=== PATIENT | female | born 1950 | race Hispanic/Latino ===

== ENCOUNTER 2017-05-03 07:15 | Emergency (ER) | payer OTHER ==
[2017-05-03 07:16] VITALS: BMI 30.7
[2017-05-03 07:20] VITALS: O2SAT 100
[2017-05-03 07:38] VITALS: RESP 18
--- NOTE | 2017-05-03 07:58 | ED PDOC ---
HPI: General Adult Time Seen by Provider: 05/03/17 07:46 Chief Complaint (Nursing): Dizziness/Lightheaded Chief Complaint (Provider): Dizziness/Lightheaded History Per: Patient History/Exam Limitations: no limitations Onset/Duration Of Symptoms: Hrs Current Symptoms Are (Timing): Still Present Additional Complaint(s): 67 y/o female presents to the emergency department with a complaint of dizziness since this morning, 05/03/2017. Symptoms are not associated with headache, chest pain, palpitations, nausea, or vomiting. Denies dark stools. PMD: Dr. Carlos A Quintana MD Past Medical History Reviewed: Historical Data, Nursing Documentation, Vital Signs Vital Signs: Last Vital Signs Temp 97.8 F 05/03/17 07:34 Pulse 65 05/03/17 07:34 Resp 18 05/03/17 07:34 BP 150/61 05/03/17 07:19 Pulse Ox 100 05/03/17 08:02 - Medical History PMH: Arthritis, CAD (cardiac stents ), HTN, Hypercholesterolemia, Hypothyroidism , Mitral Valve Prolapse, Osteoporosis Denies: Alzheimer's Disease, Anemia, Anxiety, Asthma, Bipolar Disorder, Bronchitis, Cardia Arrhythmia, CHF, COPD, Crohn's Disease, Dementia, Depression , Diverticulitis, Emphysema, Fibromyalgia, Fractures, Gastrointestinal Ulcer, Gall Bladder Disease, HIV, Hyperthyroidism, Kidney Stones, Migraine, Pancreatitis, Paranoia, Parkinson's Disease, Peripheral Edema, Pneumonia, Post Traumatic Stress Disorder, Chronic Kidney Disease, Schizophrenia, Seizures, Sickle Cell Disease, Sexually Transmitted Disease, Sleep Apnea, TIA - Surgical History Surgical History: Coronary Stent (4 stents 2012) Denies: Appendectomy, Cholecystectomy, Pacemaker - Family History Family History: States: Unknown Family Hx - Social History Current smoker - smoking cessation education provided: No Alcohol: None Drugs: Denies - Home Medications Home Medications: Ambulatory Orders Medication Instructions Recorded Aspirin [Adult Low Dose Aspirin EC] 81 mg PO DAILY 07/05/16 Lidocaine 5% [Lidoderm] 1 ea TOP DAILY #30 patch 07/05/16 Losartan Potassium [Cozaar] 50 mg PO DAILY 07/05/16 Prasugrel [Effient] 10 mg PO DAILY 07/05/16 Simvastatin [Zocor] 20 mg PO HS 07/05/16 amLODIPine [Norvasc] 2.5 mg PO DAILY 07/05/16 Meclizine [Meclizine*] 25 mg PO Q8 #15 tab 05/03/17 - Allergies Allergies/Adverse Reactions: Allergies Allergy/AdvReac Type Severity Reaction Status Date / Time Penicillins Allergy SHORTNESS Verified 05/03/17 07:34 OF BREATH Review of Systems ROS Statement: Except As Marked, All Systems Reviewed And Found Negative Cardiovascular: Negative for: Chest Pain, Palpitations Gastrointestinal: Negative for: Nausea, Vomiting, Melena Neurological: Positive for: Dizziness. Negative for: Headache Physical Exam - Reviewed Nursing Documentation Reviewed: Yes Vital Signs Reviewed: Yes - Physical Exam Appears: Positive for: Non-toxic, No Acute Distress Head Exam: Positive for: ATRAUMATIC, NORMAL INSPECTION, NORMOCEPHALIC Skin: Positive for: Normal Color, Warm, Dry Cardiovascular/Chest: Positive for: Regular Rate, Rhythm. Negative for: Murmur Respiratory: Positive for: Normal Breath Sounds. Negative for: Accessory Muscle Use, Respiratory Distress Gastrointestinal/Abdominal: Positive for: Normal Exam, Soft. Negative for: Tenderness Extremity: Positive for: Normal ROM. Negative for: Pedal Edema Neurologic/Psych: Positive for: Alert, rubber goods assembler II-XII (Intact), Oriented - Laboratory Results Result Diagrams: 05/03/17 07:50 05/03/17 07:50 - ECG O2 Sat by Pulse Oximetry: 100 (RA) Pulse Ox Interpretation: Normal Medical Decision Making Medical Decision Making: Time:07:53 Initial impression: Dizziness Initial plan: --EKG --CMP --Troponin --CBC w/ diff --PT/INR --Reevaluation Scribe Attestation: Documented by Nga Jackson, acting as a scribe for Brandon Chester MD. Provider Scribe Attestation: All medical record entries made by the Scribe were at my direction and personally dictated by me. I have reviewed the chart and agree that the record accurately reflects my personal performance of the history, physical exam, medical decision making, and the department course for this patient. I have also personally directed, reviewed, and agree with the discharge instructions and disposition. Disposition - Clinical Impression Clinical Impression: Dizziness - Patient ED Disposition Is Patient to be Admitted: No Counseled Patient/Family Regarding: Studies Performed, Diagnosis, Need For Followup, Rx Given - Disposition Referrals: Carlos A Quintana MD [Primary Care Provider] - Disposition: Routine/Home Disposition Time: 08:42 Condition: FAIR Prescriptions: Meclizine [Meclizine*] 25 mg PO Q8 #15 tab Instructions: Vertigo (ED) Forms: [employer] (Salv[place]orean)
[2017-05-03 08:06] LABS: BASO # 0.1 K/uL (0.0-0.2); EOS # 0.3 K/uL (0.0-0.7); HEMOGLOBIN 12.3 g/dL (12.0-16.0); LYMPH # 0.9 K/uL (1.0-4.3); LYMPH % 22.4 % (20.0-40.0); MEAN CELL VOLUME 73.9 fl (81.0-99.0); MEAN CORPUSCULAR HEMOGLOBIN 23.9 pg (27.0-31.0); MEAN CORPUSCULAR HGB CONC 32.3 g/dL (33.0-37.0); MEAN PLATELET VOLUME 8.3 fl (7.2-11.7); MONO # 0.4 K/uL (0.0-0.8); MONO % 9.1 % (0.0-10.0); NEUT # 2.5 K/uL (1.8-7.0); NEUT % 58.5 % (50.0-75.0); NRBC % 0.2 % (0.0-0.0); RBC 5.15 Mil/uL (3.80-5.20); RED CELL DISTRIBUTION WIDTH 16.8 % (11.5-14.5); WHITE BLOOD COUNT 4.2 K/uL (4.8-10.8)
[2017-05-03 08:23] LABS: ALB/GLOB RATIO 1.2 (1.0-2.1); ALBUMIN 4.1 g/dL (3.5-5.0); ALT/SGPT 33 U/L (9-52); AST/SGOT 31 U/L (14-36); BLOOD UREA NITROGEN 15 mg/dl (7-17); CALCIUM 9.3 mg/dL (8.4-10.2); GFR AFRICAN-AMERICAN > 60; GFR NON-AFRICAN AMERICAN > 60
[2017-05-03 08:32] LABS: INR 1.2 (0.9-1.2); PROTHROMBIN TIME 12.5 Seconds (9.8-13.1)
[2017-05-03 09:43] VITALS: BP 132/74; PULSE 89; TEMP 98.6
--- NOTE | 2017-05-03 10:52 | CARD ---
APPROVED REPORT EKG Measurement Heart [id number] <Conclusion> Normal sinus rhythm Normal ECG
== END 2017-05-03 09:44 | disposition home or self-care (01) ==
LOC: H.ER 07:15 → SUPCPDRO 07:15 → H.ER 09:44
DX: R42 Dizziness and giddiness (principal); E03.9 Hypothyroidism, unspecified; E78.00 Pure hypercholesterolemia, unspecified; I10 Essential (primary) hypertension; Z79.82 Long term (current) use of aspirin; Z88.0 Allergy status to penicillin; Z95.5 Presence of coronary angioplasty implant and graft

== ENCOUNTER 2018-01-27 10:44 | Observation (INO) | payer OTHER ==
[2018-01-27 10:51] VITALS: BMI 25.7
[2018-01-27 12:13] LABS: BASO # 0.1 K/uL (0.0-0.2); BASO % 1.3 % (0.0-2.0); EOS # 0.1 K/uL (0.0-0.7); EOS % 2.2 % (0.0-4.0); HEMOGLOBIN 12.7 g/dL (12.0-16.0); LYMPH # 1.4 K/uL (1.0-4.3); LYMPH % 25.1 % (20.0-40.0); MEAN CELL VOLUME 72.4 fl (81.0-99.0); MEAN CORPUSCULAR HEMOGLOBIN 23.3 pg (27.0-31.0); MEAN CORPUSCULAR HGB CONC 32.2 g/dL (33.0-37.0); MEAN PLATELET VOLUME 8.9 fl (7.2-11.7); MONO # 0.5 K/uL (0.0-0.8); MONO % 8.7 % (0.0-10.0); NEUT # 3.5 K/uL (1.8-7.0); NEUT % 62.7 % (50.0-75.0); NRBC % 0.2 % (0.0-0.0); RBC 5.47 Mil/uL (3.80-5.20); RED CELL DISTRIBUTION WIDTH 17.1 % (11.5-14.5); WHITE BLOOD COUNT 5.6 K/uL (4.8-10.8)
[2018-01-27 12:22] LABS: ALB/GLOB RATIO 1.1 (1.0-2.1); ALT/SGPT 40 U/L (9-52); AST/SGOT 34 U/L (14-36); BLOOD UREA NITROGEN 16 mg/dl (7-17); GFR AFRICAN-AMERICAN > 60; GFR NON-AFRICAN AMERICAN > 60
[2018-01-27 12:32] LABS: B-TYPE NATRIURETIC PEPTIDE 650 pg/ml (0-900)
--- NOTE | 2018-01-27 12:40 | RAD ---
HISTORY: chest pain/ r/o infiltrate COMPARISON: No prior. TECHNIQUE: Chest PA and lateral FINDINGS: LUNGS: No active pulmonary disease. PLEURA: No significant pleural effusion identified. No pneumothorax apparent. CARDIOVASCULAR: Atherosclerotic aortic calcifications. Cardiomediastinal silhouette prominent. OSSEOUS STRUCTURES: Degenerative changes. VISUALIZED UPPER ABDOMEN: Normal. OTHER FINDINGS: None. IMPRESSION: No active disease.
--- NOTE | 2018-01-27 12:42 | CT ---
PROCEDURE: CT HEAD WITHOUT CONTRAST. HISTORY: dizzy COMPARISON: None available. TECHNIQUE: Axial computed tomography images were obtained through the head/brain without intravenous contrast. Radiation dose: Total exam DLP = 659 mGy-cm. This CT exam was performed using one or more of the following dose reduction techniques: Automated exposure control, adjustment of the mA and/or kV according to patient size, and/or use of iterative reconstruction technique. FINDINGS: HEMORRHAGE: No intracranial hemorrhage. BRAIN: No mass effect or edema. Atrophy. Chronic microvascular ischemic changes. VENTRICLES: Prominent. No hydrocephalus. CALVARIUM: Left frontal excrescence. PARANASAL SINUSES: Unremarkable as visualized. No significant inflammatory changes. MASTOID AIR CELLS: Opacification of left mastoid air cells. No inflammatory changes. OTHER FINDINGS: Cerumen in both external auditory canals. IMPRESSION: Opacification of left mastoid air cells.
[2018-01-27 13:58] LABS: SQUAMOUS EPITHIAL < 1 /hpf (0-5); URINE BACTERIA RARE (<OCC); URINE BILIRUBIN NEGATIVE (NEGATIVE); URINE BLOOD MODERATE (NEGATIVE); URINE CLARITY SLIGHTY-CLOUDY (Clear); URINE COLOR YELLOW (YELLOW); URINE GLUCOSE (UA) NEG (Normal); URINE LEUKOCYTE ESTERASE MOD Leu/uL (Negative); URINE PROTEIN NEGATIVE (NEGATIVE); URINE UROBILINOGEN 0.2-1.0 mg/dL (0.2-1.0)
--- NOTE | 2018-01-27 14:59 | ED PDOC ---
Syncope/Near Syncope/Dizziness Time Seen by Provider: 01/27/18 11:23 Chief Complaint (Nursing): Dizziness/Lightheaded Chief Complaint (Provider): dizziness "i dont feel right" History Per: Patient History/Exam Limitations: no limitations Onset/Duration Of Symptoms: Intermittent Episodes (x several weeks) Current Symptoms Are (Timing): Intermittent Episodes Activity At Onset Of Symptoms: Had Just Stood up Associated Symptoms Preceding Syncopal Episode: Lightheadedness, Worse With Standing Seizure Or Post-ictal Symptoms: None Possible Causative Factor(s): Lightheaded W/Standing Fall Associated With With Symptoms: No Severity: Moderate Additional Complaint(s): 68yo female c/o recurrent near syncope and "not feeling right" intermittent episodes over last several weeks. This morning thought to have brief word finding difficulties but denies focal weakness, change in vision, sensation or actual syncope. States compliant w medications and takes ASA daily given 5 prior cardiac stents, last in 2013, but she hasnt seen a computer networking instructor adjunct in several years. NIHSS Stroke Scale - Date/Time Evaluation Performed Date Performed: 01/27/18 Time Performed: 11:45 When Was NIHSS Performed: Baseline - How Severe is the Stroke Level of Consciousness: 0=Alert LOC to Questions: 0=Both comments correct LOC to commands: 0=Obeys both correctly Best Gaze: 0=Normal Visual: 0=No visual loss Facial: 0=Normal Motor Arm - Left: 0=No drift Motor Arm - Right: 0=No drift Motor Leg - Left: 0=No drift Motor Leg - Right: 0=No drift Limb Ataxia: 0=Absent Sensory: 0=Normal Best Language: 0=No aphasia Dysarthia: 0=Normal articulation Extinction & Inattention (Neglect): 0=Normal, no object Score: 0 Past Medical History Reviewed: Historical Data, Nursing Documentation, Vital Signs Vital Signs: Last Vital Signs Temp 99 F 01/27/18 10:50 Pulse 84 01/27/18 10:50 Resp BP 129/56 L 01/27/18 10:50 Pulse Ox 100 01/27/18 10:50 - Medical History PMH: Arthritis, CAD (cardiac stents ), HTN, Hypercholesterolemia, Hypothyroidism , Mitral Valve Prolapse, Osteoporosis Denies: Alzheimer's Disease, Anemia, Anxiety, Asthma, Bipolar Disorder, Bronchitis, Cardia Arrhythmia, CHF, COPD, Crohn's Disease, Dementia, Depression , Diverticulitis, Emphysema, Fibromyalgia, Fractures, Gastrointestinal Ulcer, Gall Bladder Disease, HIV, Hyperthyroidism, Kidney Stones, Migraine, Pancreatitis, Paranoia, Parkinson's Disease, Peripheral Edema, Pneumonia, Post Traumatic Stress Disorder, Chronic Kidney Disease, Schizophrenia, Seizures, Sickle Cell Disease, Sexually Transmitted Disease, Sleep Apnea, TIA - Surgical History Surgical History: Coronary Stent (4 stents 2012) Denies: Appendectomy, Cholecystectomy, Pacemaker - Family History Family History: States: Unknown Family Hx - Living Arrangements Living Arrangements: With Family - Social History Current smoker - smoking cessation education provided: No - Home Medications Home Medications: Ambulatory Orders Medication Instructions Recorded Aspirin [Adult Low Dose Aspirin EC] 81 mg PO DAILY 07/05/16 Lidocaine 5% [Lidoderm] 1 ea TOP DAILY #30 patch 07/05/16 Losartan Potassium [Cozaar] 50 mg PO DAILY 07/05/16 Prasugrel [Effient] 10 mg PO DAILY 07/05/16 Simvastatin [Zocor] 20 mg PO HS 07/05/16 amLODIPine [Norvasc] 2.5 mg PO DAILY 07/05/16 Meclizine [Meclizine*] 25 mg PO Q8 #15 tab 05/03/17 - Allergies Allergies/Adverse Reactions: Allergies Allergy/AdvReac Type Severity Reaction Status Date / Time Penicillins Allergy SHORTNESS Verified 01/27/18 11:01 OF BREATH Review of Systems Constitutional: Positive for: Weakness. Negative for: Fever ENT: Negative for: Throat Pain Cardiovascular: Positive for: Palpitations, Light Headedness. Negative for: Chest Pain, Orthopnea Respiratory: Positive for: SOB with Exertion Gastrointestinal: Positive for: Nausea. Negative for: Abdominal Pain Genitourinary Female: Negative for: Dysuria Musculoskeletal: Negative for: Neck Pain Skin: Negative for: Rash, Lesions, Jaundice Neurological: Positive for: Dizziness. Negative for: Weakness, Numbness, Seizures, Headache Psych: Negative for: Suicidal ideation Physical Exam - Reviewed Nursing Documentation Reviewed: Yes Vital Signs Reviewed: Yes - Physical Exam Appears: Positive for: Well, Non-toxic, No Acute Distress Head Exam: Positive for: ATRAUMATIC, NORMAL INSPECTION, NORMOCEPHALIC Skin: Positive for: Normal Color, Warm, DRY Eye Exam: Positive for: EOMI, Normal appearance, PERRL ENT: Positive for: Normal ENT Inspection Neck: Positive for: Normal, Painless ROM Cardiovascular/Chest: Positive for: Regular Rate, Rhythm Respiratory: Positive for: CNT, Normal Breath Sounds Gastrointestinal/Abdominal: Positive for: Normal Exam, Soft. Negative for: Tenderness Back: Positive for: Normal Inspection Extremity: Positive for: Normal ROM Neurologic/Psych: Positive for: Alert, Oriented - Laboratory Results Result Diagrams: 01/27/18 12:00 01/27/18 12:00 - ECG O2 Sat by Pulse Oximetry: 100 Medical Decision Making Medical Decision Making: pt not a candidate for TPA given onset >6hrs and NIHSS currently 0 workup for recurrent near syncope initiated CT brain ordered Labs/EKG reviewed CT brain neg for acute infarct D/w FRUIT SPRAYER at PMD Dr Pack office, no recent cardiology workup Given CAD and multiple risk factors, admit obs for cardio/neuro evals D/w Dr Carrasquillo cardio alteration tailor requests echo and orthostatics Small UTI macrobid initiated Disposition - Clinical Impression Clinical Impression: Near syncope - Patient ED Disposition Is Patient to be Admitted: Yes Counseled Patient/Family Regarding: Studies Performed, Diagnosis, Need For Followup - Disposition Disposition Time: 13:30 Condition: FAIR Forms: [employer] ([place]) - Pt Status Changed To: Hospital Disposition Of: Observation - POA Present On Arrival: None
--- NOTE | 2018-01-27 16:13 | CARD ---
APPROVED REPORT EXAM: Two-dimensional and M-mode echocardiogram with Doppler and color Doppler. Other Information Quality : [employer] : PVC's INDICATION Syncope 2D DIMENSIONS IVSd0.74 (0.7-1.1cm)LVDd4.99 (3.9-5.9cm) LVOT Diameter1.86 (1.8-2.4cm)PWd1.02 (0.7-1.1cm) IVSs1.13 (0.8-1.2cm)LVDs3.08 (2.5-4.0cm) FS (%) 38.2 %PWs1.30 (0.8-1.2cm) LVEF (%)55.0 (>50%) M-Mode DIMENSIONS Left Atrium (MM)4.15 (2.5-4.0cm)IVSd0.88 (0.7-1.1cm) Aortic Root2.41 (2.2-3.7cm)LVDd4.65 (4.0-5.6cm) Aortic Cusp Exc.1.82 (1.5-2.0cm)PWd0.97 (0.7-1.1cm) IVSs1.47 cmFS (%) 38 % LVDs2.88 (2.0-3.8cm)PWs1.50 cm Aortic Valve AI P 1/2 [id number] Mitral Valve MV E Prnbdnix09.0cm/sMV DECEL [id number] A Iftlhnlt09.3cm/s MV [id number]/A ratio0.8MVA (PHT)2.28cm2 TDI Lateral E' Peak V6.44cm/sMedial E' Peak V4.81cm/sE/Lateral E'8.9 E/Medial E'11.9 Pulmonary Valve PV Peak Jdaoknfu18.1cm/s Tricuspid Valve TR Peak Nlvkdvon857sy/sRAP [id number] Peak Gr.16mmHg [id number] LEFT VENTRICLE The left ventricle is normal size. There is mild concentric left ventricular hypertrophy. The left ventricular function is normal. The left ventricular ejection fraction is within the normal range. There is normal LV segmental wall motion. Transmitral Doppler flow pattern is Grade I-abnormal relaxation pattern. RIGHT VENTRICLE The right ventricle is normal size. There is normal right ventricular wall thickness. The right ventricular systolic function is normal. ATRIA The left atrium size is normal. The right atrium size is normal. AORTIC VALVE The aortic valve is moderately sclerotic. There is moderate aortic regurgitation. There is no aortic valvular stenosis. MITRAL VALVE The mitral valve is moderately thickened. There is no mitral valve stenosis. There is no mitral valve regurgitation noted. TRICUSPID VALVE The tricuspid valve is normal in structure. There is no tricuspid valve regurgitation noted. PULMONIC VALVE The pulmonary valve is normal in structure. There is no pulmonic valvular regurgitation. GREAT VESSELS The aortic root is normal in size. The IVC is normal in size and collapses >50% with inspiration. PERICARDIAL EFFUSION There is a trace loculated anterior pericardial effusion. <Conclusion> The left ventricle is normal size. There is mild concentric left ventricular hypertrophy. The left ventricular function is normal. The left ventricular ejection fraction is within the normal range. There is normal LV segmental wall motion. Transmitral Doppler flow pattern is Grade I-abnormal relaxation pattern. There is moderate aortic regurgitation.
--- NOTE | 2018-01-27 18:35 | CARD ---
APPROVED REPORT EKG Measurement Heart [id number] <Conclusion> Normal sinus rhythm Normal ECG
--- NOTE | 2018-01-27 20:06 | CP.PCM.CON ---
History of Present Illness - History of Present Illness History of Present Illness: 68 Y/O FEMALE WITH LH X 4 WEEKS. PT STATES THAT SHE HAS BEEN FEELING LH WITH STANDING, ON AND OFF X SEVERAL EPISODES OVER PAST 4 WEEKS. PT DENIES SYNCOPE. SHE STATES TODAY HER LH WAS MORE SEVERE SO SHE CAME TO ER. SHE STATES THAT TODAY SHE ALSO FELT WEAK. PT HAD SEVERAL ANGINAL EVENTS IN PAST WITH CP AND L ARM PAIN. SHE HAS NOT HAD ANY OF THOSE SYMPTOMS RECENTLY. SHE HAS PCI X 4. ON ASA AND EFFIENT PT IS MILDLY PRERENAL, MILD DECREASED BP FOR AGE, AND BRADYCARDIC AT REST. I REVIEWED ECHO IMAGES - NML EF, DIASTOLIC DYSFUNCTION, MILD AI AND MR. Past Patient History - Infectious Disease Hx of Infectious Diseases: None - Past Social History Smoking Status: Former Smoker - CARDIAC Hx Cardiac Disorders: Yes - PULMONARY Hx Asthma: No Hx Bronchitis: No Hx Chronic Obstructive Pulmonary Disease (COPD): No Hx Emphysema: No Hx Pneumonia: No Hx Sleep Apnea: No - NEUROLOGICAL Hx Neurological Disorder: Yes - HEENT Hx HEENT Problems: Yes (wears glasses) - RENAL Hx Chronic Kidney Disease: No - ENDOCRINE/METABOLIC Hx Hyperthyroidism: No Hx Hypothyroidism: Yes - HEMATOLOGICAL/ONCOLOGICAL Hx Anemia: No Hx Human Immunodeficiency Virus (HIV): No Hx Sickle Cell Disease: No - INTEGUMENTARY Hx Dermatological Problems: No Hx Basil Cell: No Hx Eczema: No Hx Melanoma: No Hx Psoriasis: No Hx Squamous Cell: No - MUSCULOSKELETAL/RHEUMATOLOGICAL Hx Musculoskeletal Disorders: Yes - GASTROINTESTINAL Hx Crohn's Disease: No Hx Diverticulitis: No Hx Gall Bladder Disease: No Hx Pancreatitis: No - GENITOURINARY/GYNECOLOGICAL Hx Sexually Transmitted Disorders: No - PSYCHIATRIC Hx Anxiety: No Hx Bipolar Disorder: No Hx Depression: No Hx Paranoia: No Hx Post Traumatic Stress Disorder: No Hx Schizophrenia: No - SURGICAL HISTORY Hx Appendectomy: No Hx Cholecystectomy: No Hx Coronary Stent: Yes (4 stents 2012) - ANESTHESIA Hx Anesthesia: Yes Hx Anesthesia Reactions: No Hx Malignant Hyperthermia: No Meds Allergies/Adverse Reactions: Allergies Allergy/AdvReac Type Severity Reaction Status Date / Time Penicillins Allergy SHORTNESS Verified 01/27/18 11:01 OF BREATH - Medications Medications: Current Medications Amlodipine Besylate (Norvasc) 2.5 mg PO DAILY RAUL Aspirin (Ecotrin) 81 mg PO DAILY RAUL Atorvastatin Calcium (Lipitor) 10 mg PO HS RAUL Home Med (Prasugrel [Effient]) 10 mg PO DAILY RAUL Losartan Potassium (Cozaar) 50 mg PO DAILY [facility] Results - Vital Signs Recent Vital Signs: Last Vital Signs Temp 98 F 01/27/18 19:42 Pulse 68 01/27/18 19:42 Resp 18 01/27/18 19:42 BP 123/65 01/27/18 19:42 Pulse Ox 100 01/27/18 19:41 - Labs Result Diagrams: 01/27/18 12:00 01/27/18 12:00 Labs: Laboratory Results - last 24 hr 01/27/18 01/27/18 01/27/18 11:14 12:00 12:00 WBC 5.6 RBC 5.47 H Hgb 12.7 Hct 39.6 MCV 72.4 L MCH 23.3 L MCHC 32.2 L RDW 17.1 H Plt Count 216 MPV 8.9 Neut % (Auto) 62.7 Lymph % (Auto) 25.1 [place] % (Auto) 8.7 Eos % (Auto) 2.2 Baso % (Auto) 1.3 Neut # (Auto) 3.5 Lymph # (Auto) 1.4 [place] # (Auto) 0.5 Eos # (Auto) 0.1 Baso # (Auto) 0.1 Sodium 139 Potassium 4.5 Chloride 103 Carbon Dioxide 23 Anion Gap 18 BUN 16 Creatinine 0.9 Est GFR ( Amer) > 60 Est GFR (Non-Af Amer) > 60 POC Glucose (mg/dL) 104 Random Glucose 98 Calcium 10.0 Total Bilirubin 0.7 AST 34 ALT 40 Alkaline Phosphatase 69 Troponin I < 0.0120 NT-Pro-B Natriuret Pep 650 Total Protein 7.8 Albumin 4.0 Globulin 3.7 Albumin/Globulin Ratio 1.1 Urine Color Urine Clarity Urine pH Ur Specific [place] Urine Protein Urine Glucose (UA) Urine Ketones Urine Blood Urine Nitrate Urine Bilirubin Urine Urobilinogen Ur Leukocyte Esterase Urine RBC (Auto) Urine Microscopic WBC Ur Squamous Epith Cells Urine Bacteria 01/27/18 12:32 WBC RBC Hgb Hct MCV MCH MCHC RDW Plt Count MPV Neut % (Auto) Lymph % (Auto) [place] % (Auto) Eos % (Auto) Baso % (Auto) Neut # (Auto) Lymph # (Auto) [place] # (Auto) Eos # (Auto) Baso # (Auto) Sodium Potassium Chloride Carbon Dioxide Anion Gap BUN Creatinine Est GFR ( Amer) Est GFR (Non-Af Amer) POC Glucose (mg/dL) Random Glucose Calcium Total Bilirubin AST ALT Alkaline Phosphatase Troponin I NT-Pro-B Natriuret Pep Total Protein Albumin Globulin Albumin/Globulin Ratio Urine Color Yellow Urine Clarity Slighty-cloudy Urine pH 7.0 Ur Specific [place] 1.010 Urine Protein Negative Urine Glucose (UA) Neg Urine Ketones Negative Urine Blood Moderate Urine Nitrate Negative Urine Bilirubin Negative Urine Urobilinogen 0.2-1.0 Ur Leukocyte Esterase Mod Urine RBC (Auto) 6 H Urine Microscopic WBC 7 H Ur Squamous Epith Cells < 1 Urine Bacteria Rare Assessment & Plan (1) Bradycardia Status: Acute (2) Aortic insufficiency Status: Acute (3) Mitral regurgitation Status: Acute (4) Prerenal azotemia Status: Acute (5) Near syncope Status: Acute (6) Hypertension Status: Acute - Assessment and Plan (Free Text) Plan: ECHO DONE AND REVIEWED. SEE ABOVE CONT MEDS, HOWEVER WOULD STOP NORVASC GIVEN LOW DIASTOLIC PRESSURE AND OVERALL TARGET FOR AGE IS 140/70-80. CHECK TFTS MONITOR ON TELE FOR INCREASED HR ON EXERTION. REPEAT ORTHOSTATICS LAYING AND STANDING ONLY.
[2018-01-27] MEDS ORDERED: Sodium Chloride 0.9% 1,000 ML IV SCH (21:45)
[2018-01-28 05:41] LABS: HEMOGLOBIN 12.7 g/dL (12.0-16.0); MEAN CELL VOLUME 73.8 fl (81.0-99.0); MEAN CORPUSCULAR HEMOGLOBIN 23.8 pg (27.0-31.0); MEAN CORPUSCULAR HGB CONC 32.2 g/dL (33.0-37.0); RBC 5.35 Mil/uL (3.80-5.20); RED CELL DISTRIBUTION WIDTH 17.3 % (11.5-14.5); WHITE BLOOD COUNT 5.2 K/uL (4.8-10.8)
[2018-01-28 06:01] LABS: BLOOD UREA NITROGEN 13 mg/dl (7-17); CALCIUM 8.9 mg/dL (8.4-10.2); GFR AFRICAN-AMERICAN > 60; GFR NON-AFRICAN AMERICAN > 60
[2018-01-28 06:26] LABS: T3 2.66 nmol/L (1.49-2.60)
[2018-01-28] MEDS ORDERED: PRASUGREL 10 MG PO SCH (09:00)
[2018-01-28] MEDS ORDERED: Enoxaparin 40 mg Syringe SC SCH (09:00)
--- NOTE | 2018-01-28 09:56 | CP.PCM.HP ---
Past Patient History - Infectious Disease Hx of Infectious Diseases: None - Past Medical History & Family History Past Medical History?: Yes - Past Social History Smoking Status: Former Smoker - CARDIAC Hx Cardiac Disorders: Yes - PULMONARY Hx Asthma: No Hx Bronchitis: No Hx Chronic Obstructive Pulmonary Disease (COPD): No Hx Emphysema: No Hx Pneumonia: No Hx Sleep Apnea: No - NEUROLOGICAL Hx Neurological Disorder: Yes - HEENT Hx HEENT Problems: Yes (wears glasses) - RENAL Hx Chronic Kidney Disease: No - ENDOCRINE/METABOLIC Hx Hyperthyroidism: No Hx Hypothyroidism: Yes - HEMATOLOGICAL/ONCOLOGICAL Hx Anemia: No Hx Human Immunodeficiency Virus (HIV): No Hx Sickle Cell Disease: No - INTEGUMENTARY Hx Dermatological Problems: No Hx Basil Cell: No Hx Eczema: No Hx Melanoma: No Hx Psoriasis: No Hx Squamous Cell: No - MUSCULOSKELETAL/RHEUMATOLOGICAL Hx Musculoskeletal Disorders: Yes - GASTROINTESTINAL Hx Crohn's Disease: No Hx Diverticulitis: No Hx Gall Bladder Disease: No Hx Pancreatitis: No - GENITOURINARY/GYNECOLOGICAL Hx Sexually Transmitted Disorders: No - PSYCHIATRIC Hx Anxiety: No Hx Bipolar Disorder: No Hx Depression: No Hx Paranoia: No Hx Post Traumatic Stress Disorder: No Hx Schizophrenia: No - SURGICAL HISTORY Hx Appendectomy: No Hx Cholecystectomy: No Hx Coronary Stent: Yes (4 stents 2012) - ANESTHESIA Hx Anesthesia: Yes Hx Anesthesia Reactions: No Hx Malignant Hyperthermia: No Meds Allergies/Adverse Reactions: Allergies Allergy/AdvReac Type Severity Reaction Status Date / Time Penicillins Allergy SHORTNESS Verified 01/27/18 11:01 OF BREATH Results - Vital Signs Recent Vital Signs: Last Vital Signs Temp 97.5 F L 01/28/18 08:06 Pulse 78 01/28/18 09:49 Resp 18 01/28/18 08:06 BP 153/70 H 01/28/18 09:49 Pulse Ox 98 01/28/18 08:06 - Labs Result Diagrams: 01/28/18 04:20 01/28/18 04:20 Labs: Laboratory Results - last 24 hr 01/27/18 01/27/18 01/27/18 11:14 12:00 12:00 WBC 5.6 RBC 5.47 H Hgb 12.7 Hct 39.6 MCV 72.4 L MCH 23.3 L MCHC 32.2 L RDW 17.1 H Plt Count 216 MPV 8.9 Neut % (Auto) 62.7 Lymph % (Auto) 25.1 [place] % (Auto) 8.7 Eos % (Auto) 2.2 Baso % (Auto) 1.3 Neut # (Auto) 3.5 Lymph # (Auto) 1.4 [place] # (Auto) 0.5 Eos # (Auto) 0.1 Baso # (Auto) 0.1 Sodium 139 Potassium 4.5 Chloride 103 Carbon Dioxide 23 Anion Gap 18 BUN 16 Creatinine 0.9 Est GFR ( Amer) > 60 Est GFR (Non-Af Amer) > 60 POC Glucose (mg/dL) 104 Random Glucose 98 Calcium 10.0 Magnesium Total Bilirubin 0.7 AST 34 ALT 40 Alkaline Phosphatase 69 Troponin I < 0.0120 NT-Pro-B Natriuret Pep 650 Total Protein 7.8 Albumin 4.0 Globulin 3.7 Albumin/Globulin Ratio 1.1 Free T4 Total T3 TSH 3rd Generation Urine Color Urine Clarity Urine pH Ur Specific [place] Urine Protein Urine Glucose (UA) Urine Ketones Urine Blood Urine Nitrate Urine Bilirubin Urine Urobilinogen Ur Leukocyte Esterase Urine RBC (Auto) Urine Microscopic WBC Ur Squamous Epith Cells Urine Bacteria 01/27/18 01/28/18 01/28/18 12:32 04:20 04:20 WBC 5.2 RBC 5.35 H Hgb 12.7 Hct 39.5 MCV 73.8 L MCH 23.8 L MCHC 32.2 L RDW 17.3 H Plt Count 201 MPV Neut % (Auto) Lymph % (Auto) [place] % (Auto) Eos % (Auto) Baso % (Auto) Neut # (Auto) Lymph # (Auto) [place] # (Auto) Eos # (Auto) Baso # (Auto) Sodium 141 Potassium 3.6 Chloride 105 Carbon Dioxide 22 Anion Gap 18 BUN 13 Creatinine 0.9 Est GFR ( Amer) > 60 Est GFR (Non-Af Amer) > 60 POC Glucose (mg/dL) Random Glucose 81 Calcium 8.9 Magnesium 2.1 Total Bilirubin AST ALT Alkaline Phosphatase Troponin I NT-Pro-B Natriuret Pep Total Protein Albumin Globulin Albumin/Globulin Ratio Free T4 Total T3 2.66 H TSH 3rd Generation 5.86 H Urine Color Yellow Urine Clarity Slighty-cloudy Urine pH 7.0 Ur Specific [place] 1.010 Urine Protein Negative Urine Glucose (UA) Neg Urine Ketones Negative Urine Blood Moderate Urine Nitrate Negative Urine Bilirubin Negative Urine Urobilinogen 0.2-1.0 Ur Leukocyte Esterase Mod Urine RBC (Auto) 6 H Urine Microscopic WBC 7 H Ur Squamous Epith Cells < 1 Urine Bacteria Rare 01/28/18 04:20 WBC RBC Hgb Hct MCV MCH MCHC RDW Plt Count MPV Neut % (Auto) Lymph % (Auto) [place] % (Auto) Eos % (Auto) Baso % (Auto) Neut # (Auto) Lymph # (Auto) [place] # (Auto) Eos # (Auto) Baso # (Auto) Sodium Potassium Chloride Carbon Dioxide Anion Gap BUN Creatinine Est GFR ( Amer) Est GFR (Non-Af Amer) POC Glucose (mg/dL) Random Glucose Calcium Magnesium Total Bilirubin AST ALT Alkaline Phosphatase Troponin I NT-Pro-B Natriuret Pep Total Protein Albumin Globulin Albumin/Globulin Ratio Free T4 1.57 Total T3 TSH 3rd Generation Urine Color Urine Clarity Urine pH Ur Specific [place] Urine Protein Urine Glucose (UA) Urine Ketones Urine Blood Urine Nitrate Urine Bilirubin Urine Urobilinogen Ur Leukocyte Esterase Urine RBC (Auto) Urine Microscopic WBC Ur Squamous Epith Cells Urine Bacteria
--- NOTE | 2018-01-28 12:55 | CP.PCM.DIS ---
Provider - Provider Date of Admission: 01/27/18 14:24 Attending physician: Jerod Elizalde MD Consults: Cardiology Dr Carrasquillo Time Spent in preparation of Discharge (in minutes): 25 Diagnosis - Discharge Diagnosis (1) Near syncope Status: Resolved Comment: - may be secondary low BP on Norvasc. -Dc norvasc. -c/w the rest of home medications (2) Hypertension Status: Chronic (3) Aortic insufficiency Status: Acute Comment: - Echo normal EF. - mod aortic regurgitation. -F/u frame changer Dr Carrasquillo (4) Subclinical hypothyroidism Status: Acute Comment: - f/u PMD. -repeat TSH , free T4 in 2 weeks (5) UTI (urinary tract infection) Status: Acute Comment: -c/w macrobid x 5 days Hospital Course - Lab Results Lab Results: Most Recent Lab Values WBC 5.2 K/uL (4.8-10.8) 01/28/18 04:20 RBC 5.35 Mil/uL (3.80-5.20) H 01/28/18 04:20 Hgb 12.7 g/dL (12.0-16.0) 01/28/18 04:20 Hct 39.5 % (34.0-47.0) 01/28/18 04:20 MCV 73.8 fl (81.0-99.0) L 01/28/18 04:20 MCH 23.8 pg (27.0-31.0) L 01/28/18 04:20 MCHC 32.2 g/dL (33.0-37.0) L 01/28/18 04:20 RDW 17.3 % (11.5-14.5) H 01/28/18 04:20 Plt Count 201 K/uL (130-400) 01/28/18 04:20 MPV 8.9 fl (7.2-11.7) 01/27/18 12:00 Neut % (Auto) 62.7 % (50.0-75.0) 01/27/18 12:00 Lymph % (Auto) 25.1 % (20.0-40.0) 01/27/18 12:00 [place] % (Auto) 8.7 % (0.0-10.0) 01/27/18 12:00 Eos % (Auto) 2.2 % (0.0-4.0) 01/27/18 12:00 Baso % (Auto) 1.3 % (0.0-2.0) 01/27/18 12:00 Neut # (Auto) 3.5 K/uL (1.8-7.0) 01/27/18 12:00 Lymph # (Auto) 1.4 K/uL (1.0-4.3) 01/27/18 12:00 [place] # (Auto) 0.5 K/uL (0.0-0.8) 01/27/18 12:00 Eos # (Auto) 0.1 K/uL (0.0-0.7) 01/27/18 12:00 Baso # (Auto) 0.1 K/uL (0.0-0.2) 01/27/18 12:00 Sodium 141 mmol/l (132-148) 01/28/18 04:20 Potassium 3.6 MMOL/L (3.6-5.0) 01/28/18 04:20 Chloride 105 mmol/L (98-107) 01/28/18 04:20 Carbon Dioxide 22 mmol/L (22-30) 01/28/18 04:20 Anion Gap 18 (10-20) 01/28/18 04:20 BUN 13 mg/dl (7-17) 01/28/18 04:20 Creatinine 0.9 mg/dl (0.7-1.2) 01/28/18 04:20 Est GFR ( Amer) > 60 01/28/18 04:20 Est GFR (Non-Af Amer) > 60 01/28/18 04:20 POC Glucose (mg/dL) 104 mg/dL (65-110) 01/27/18 11:14 Random Glucose 81 mg/dL (65-105) 01/28/18 04:20 Hemoglobin A1c 6.0 % (4.2-6.5) 01/28/18 04:20 Calcium 8.9 mg/dL (8.4-10.2) 01/28/18 04:20 Magnesium 2.1 MG/DL (1.6-2.3) 01/28/18 04:20 Total Bilirubin 0.7 mg/dl (0.2-1.3) 01/27/18 12:00 AST 34 U/L (14-36) 01/27/18 12:00 ALT 40 U/L (9-52) 01/27/18 12:00 Alkaline Phosphatase 69 U/L (38-126) 01/27/18 12:00 Troponin I < 0.0120 ng/mL (0.00-0.120) 01/27/18 12:00 NT-Pro-B Natriuret Pep 650 pg/ml (0-900) 01/27/18 12:00 Total Protein 7.8 G/DL (6.3-8.2) 01/27/18 12:00 Albumin 4.0 g/dL (3.5-5.0) 01/27/18 12:00 Globulin 3.7 gm/dL (2.2-3.9) 01/27/18 12:00 Albumin/Globulin Ratio 1.1 (1.0-2.1) 01/27/18 12:00 Free T4 1.57 ng/dL (0.78-2.19) 01/28/18 04:20 Total T3 2.66 nmol/L (1.49-2.60) H 01/28/18 04:20 TSH 3rd Generation 5.86 mIU/ML (0.46-4.68) H 01/28/18 04:20 Urine Color Yellow (YELLOW) 01/27/18 12:32 Urine Clarity Slighty-cloudy (Clear) 01/27/18 12:32 Urine pH 7.0 (5.0-8.0) 01/27/18 12:32 Ur Specific [place] 1.010 (1.003-1.030) 01/27/18 12:32 Urine Protein Negative mg/dL (NEGATIVE) 01/27/18 12:32 Urine Glucose (UA) Neg mg/dL (Normal) 01/27/18 12:32 Urine Ketones Negative mg/dL (NEGATIVE) 01/27/18 12:32 Urine Blood Moderate (NEGATIVE) 01/27/18 12:32 Urine Nitrate Negative (NEGATIVE) 01/27/18 12:32 Urine Bilirubin Negative (NEGATIVE) 01/27/18 12:32 Urine Urobilinogen 0.2-1.0 mg/dL (0.2-1.0) 01/27/18 12:32 Ur Leukocyte Esterase Mod [place]/uL (Negative) 01/27/18 12:32 Urine RBC (Auto) 6 /hpf (0-3) H 01/27/18 12:32 Urine Microscopic WBC 7 /hpf (0-5) H 01/27/18 12:32 Ur Squamous Epith Cells < 1 /hpf (0-5) 01/27/18 12:32 Urine Bacteria Rare (<OCC) 01/27/18 12:32 - Hospital Course Hospital Course: 68 yo ,f, PMhx/o HTN, CAD s/p coronary stent x 4 in 2013, HLD admitted for recurrent near syncope episodes. Patient report that it happened for the last 2 months, almost every day, mild duration, and it repeated yesterday at home while standing position, w/o associated symptoms. Patient had to sit on the coach mechanic and called ambulance. During hospital patient on telemetry monitoring, orthostatic vital signs normal, dizziness and lightheadedness subsided. Patient evaluated by Medical Records Director Dr Carrasquillo. Echo showed normal EF. Mod aortic regurgitation. Norvasc was discontinue due to low blood pressure. Work up for near syncope normal Ct Head w/o contrast normal. TSH high, free t4 normal. Subclinic hypothyroidism. carotid Us showed no significant stenosis. . If normal patient may be discharged. UA on admission showed mild UTI. Patient on Macrobid. Continue Macrobid at home x 5 days. Patient seen and examined bedside by Dr elizalde. Asymptomatic. Cleared to be discharged. f/u with Dr elizalde and frame changer. Discharge Exam - Head Exam Head Exam: ATRAUMATIC, NORMAL INSPECTION, NORMOCEPHALIC - Eye Exam Eye Exam: Normal appearance - ENT Exam ENT Exam: Mucous Membranes Moist - Respiratory Exam Respiratory Exam: Clear to PA & Lateral. absent: Rales, Rhonchi, Wheezes - Cardiovascular Exam Cardiovascular Exam: REGULAR RHYTHM, +S1, +S2 - GI/Abdominal Exam GI & Abdominal Exam: Normal Bowel Sounds, Soft. absent: Guarding, Rebound - Neurological Exam Neurological exam: Alert, Normal Gait, Oriented x3 - Psychiatric Exam Psychiatric exam: Normal Affect, Normal Mood - Skin Skin Exam: Intact Discharge Plan - Follow Up Plan Condition: STABLE Disposition: HOME/ ROUTINE Instructions: Bradycardia (DC), Near Fainting (DC) Additional Instructions: -follow Up with Dr Carrasquillo frame changer in 2 weeks follow up with in 7 days Referrals: Jerod Elizalde MD [Staff Provider] - Patty Pack MD [Medical Doctor] - Yg Carrasquillo MD [Staff Provider] -
--- NOTE | 2018-01-28 14:53 | US ---
PROCEDURE: Duplex ultrasound of the carotid and vertebral arteries. HISTORY: near syncope COMPARISON: None available. TECHNIQUE: Grayscale and duplex Doppler evaluation of the cervical carotid and vertebral arteries were performed. The common carotid, carotid bifurcations and cervical ICA and proximal ECA were evaluated. The vertebral arteries were evaluated for gross patency and direction. FINDINGS: RIGHT CAROTID ARTERIES: Common Carotid Artery: Normal. Maximal flow velocity of 74.6 cm/s. Carotid Bifurcation: Trace plaque noted at the carotid bulb. Internal Carotid Artery:Trace proximal ICA plaque noted. Maximal flow velocity of 68.8 cm/s. External Carotid Artery (proximal branches): Normal. Maximal flow velocity of 117.3 cm/s. ICA/CCA Ratio: LEFT CAROTID ARTERIES: Common Carotid Artery: Normal. Maximal flow velocity of 81.1 cm/s. Carotid Bifurcation: Trace plaque noted at the carotid bulb. Internal Carotid Artery:Trace proximal ICA plaque noted. Maximal flow velocity of 74.3 cm/s. External Carotid Artery (proximal branches): Normal. Maximal flow velocity of 132.6 cm/s. ICA/CCA Ratio: VERTEBRAL ARTERIES: Right Vertebral Artery: Patent. Antegrade flow. Left Vertebral Artery: Patent. Antegrade flow. OTHER FINDINGS: None. IMPRESSION: No significant stenosis bilateral common or internal carotid arteries with trace atherosclerosis identified in the bilateral carotid bulbs and proximal bilateral ICA segments. Moderate left ECA stenosis in question, on the basis of spectral analysis alone.
[2018-01-28 16:26] VITALS: BP 121/67; PULSE 71; RESP 16; TEMP 97.6; O2SAT 98
== END 2018-01-28 17:55 | disposition home or self-care (01) ==
LOC: H.ER 10:44 → H.ERHOLD 14:24 → H.TEL 19:32
PROVIDERS: ADMIT Family Medicine; ATTEND Family Medicine
DX: R55 Syncope and collapse (principal); I10 Essential (primary) hypertension; I35.1 Nonrheumatic aortic (valve) insufficiency; N39.0 Urinary tract infection, site not specified; E02 Subclinical iodine-deficiency hypothyroidism; M81.0 Age-related osteoporosis without current pathological fracture; I25.10 Atherosclerotic heart disease of native coronary artery without angina pectoris; Z95.5 Presence of coronary angioplasty implant and graft; E78.5 Hyperlipidemia, unspecified; E78.00 Pure hypercholesterolemia, unspecified; Z88.0 Allergy status to penicillin; M19.90 Unspecified osteoarthritis, unspecified site; Z87.891 Personal history of nicotine dependence; I34.1 Nonrheumatic mitral (valve) prolapse
CPT/HCPCS: 36415; 70450; 71046; 80048; 80053; 81003; 82948; 83036; 83735; 83880; 84439; 84443; 84480; 84484; 85025; 85027; 93005; 93306; 93880; 99285; G0378; J1650; J7040

== ENCOUNTER 2018-02-25 11:07 | Observation (INO) | payer OTHER ==
[2018-02-25 11:07] VITALS: BMI 25.7
--- NOTE | 2018-02-25 11:34 | ED PDOC ---
Syncope/Near Syncope/Dizziness Time Seen by Provider: 02/25/18 11:16 Chief Complaint (Nursing): Dizziness/Lightheaded Chief Complaint (Provider): Dizziness History Per: Patient History/Exam Limitations: no limitations Onset/Duration Of Symptoms: Mins Activity At Onset Of Symptoms: Standing Additional Complaint(s): 68 y/o female with a history of HTN brought in by EMS presents to the ED with dizziness while at store. Patient states the dizziness is worse when she is upright. She had a similar episode one moth ago. She denies any headache, CP, palpitations, LOC, weakness, or paresthesias. PMD: Ramone Kern Past Medical History Reviewed: Historical Data, Nursing Documentation, Vital Signs Vital Signs: Last Vital Signs Temp 97.7 F 02/25/18 11:12 Pulse 59 L 02/25/18 11:12 Resp 18 02/25/18 11:12 BP 141/71 02/25/18 11:12 Pulse Ox 99 02/25/18 11:12 - Medical History PMH: Arthritis, CAD, HTN, Hypercholesterolemia, Hypothyroidism, Mitral Valve Prolapse, Osteoporosis Denies: Alzheimer's Disease, Anemia, Anxiety, Asthma, Bipolar Disorder, Bronchitis, Cardia Arrhythmia, CHF, COPD, Crohn's Disease, Dementia, Depression , Diverticulitis, Emphysema, Fibromyalgia, Fractures, Gastrointestinal Ulcer, Gall Bladder Disease, HIV, Hyperthyroidism, Kidney Stones, Migraine, Pancreatitis, Paranoia, Parkinson's Disease, Peripheral Edema, Pneumonia, Post Traumatic Stress Disorder, Chronic Kidney Disease, Schizophrenia, Seizures, Sickle Cell Disease, Sexually Transmitted Disease, Sleep Apnea, TIA - Surgical History Surgical History: Coronary Stent (4 stents 2012) Denies: Appendectomy, Cholecystectomy, Pacemaker - Family History Family History: States: Unknown Family Hx - Social History Current smoker - smoking cessation education provided: No Ex-Smoker (has not smoked in the last 12 months): No Alcohol: None Drugs: Denies - Home Medications Home Medications: Ambulatory Orders Medication Instructions Recorded Aspirin [Adult Low Dose Aspirin EC] 81 mg PO DAILY 07/05/16 Losartan Potassium [Cozaar] 50 mg PO DAILY 07/05/16 Prasugrel [Effient] 10 mg PO DAILY 07/05/16 Simvastatin [Zocor] 20 mg PO HS 07/05/16 amLODIPine [Norvasc] 2.5 mg PO DAILY 02/25/18 - Allergies Allergies/Adverse Reactions: Allergies Allergy/AdvReac Type Severity Reaction Status Date / Time Penicillins Allergy SHORTNESS Verified 01/27/18 11:01 OF BREATH Review of Systems ROS Statement: Except As Marked, All Systems Reviewed And Found Negative Constitutional: Negative for: Weakness Cardiovascular: Negative for: Chest Pain, Palpitations Neurological: Positive for: Dizziness. Negative for: Headache, Other (LOC and paresthesias) Physical Exam - Reviewed Nursing Documentation Reviewed: Yes Vital Signs Reviewed: Yes - Physical Exam Appears: Positive for: Non-toxic, No Acute Distress Head Exam: Positive for: ATRAUMATIC, NORMOCEPHALIC Skin: Positive for: Normal Color, Warm, Dry Eye Exam: Positive for: EOMI, Normal appearance, PERRL Neck: Positive for: Normal, Painless ROM, Supple Cardiovascular/Chest: Positive for: Regular Rate, Rhythm. Negative for: Murmur Respiratory: Positive for: Normal Breath Sounds. Negative for: Respiratory Distress Gastrointestinal/Abdominal: Positive for: Normal Exam, Soft. Negative for: Tenderness Extremity: Positive for: Normal ROM. Negative for: Tenderness, Swelling Neurologic/Psych: Positive for: Alert, Oriented (x3). Negative for: Motor/ Sensory Deficits - Laboratory Results Result Diagrams: 02/25/18 11:44 02/25/18 11:44 - ECG O2 Sat by Pulse Oximetry: 99 (RA) Pulse Ox Interpretation: Normal Medical Decision Making Medical Decision Making: Time: 11:12 Initial Plan: * EKG * CMP * BP * CBC Scribe Attestation: Documented by Katie Tobar acting as a scribe for Henrik Dickson MD. Scribe Attestation: All medical record entries made by the Scribe were at my direction and personally dictated by me. I have reviewed the chart and agree that the record accurately reflects my personal performance of the history, physical exam, medical decision making, and the department course for this patient. I have also personally directed, reviewed, and agree with the discharge instructions and disposition. Disposition - Clinical Impression Clinical Impression: Bradycardia, Near syncope - Patient ED Disposition Is Patient to be Admitted: Yes - Disposition Disposition Time: 12:42 Condition: FAIR Forms: [employer] (Romanian) - Pt Status Changed To: Hospital Disposition Of: Observation - POA Present On Arrival: None
[2018-02-25 11:49] LABS: BASO # 0.1 K/uL (0.0-0.2); BASO % 1.3 % (0.0-2.0); EOS # 0.6 K/uL (0.0-0.7); EOS % 10.4 % (0.0-4.0); HEMOGLOBIN 11.9 g/dL (12.0-16.0); LYMPH # 1.2 K/uL (1.0-4.3); LYMPH % 22.1 % (20.0-40.0); MEAN CELL VOLUME 72.2 fl (81.0-99.0); MEAN CORPUSCULAR HGB CONC 31.8 g/dL (33.0-37.0); MEAN PLATELET VOLUME 8.3 fl (7.2-11.7); MONO # 0.5 K/uL (0.0-0.8); MONO % 9.2 % (0.0-10.0); NEUT # 3.2 K/uL (1.8-7.0); NRBC % 0.1 % (0.0-0.0); RBC 5.17 Mil/uL (3.80-5.20); RED CELL DISTRIBUTION WIDTH 17.3 % (11.5-14.5); WHITE BLOOD COUNT 5.6 K/uL (4.8-10.8)
[2018-02-25 12:09] LABS: ALB/GLOB RATIO 1.1 (1.0-2.1); ALBUMIN 3.9 g/dL (3.5-5.0); ALT/SGPT 30 U/L (9-52); AST/SGOT 33 U/L (14-36); BLOOD UREA NITROGEN 18 mg/dl (7-17); CALCIUM 9.6 mg/dL (8.4-10.2); GFR AFRICAN-AMERICAN > 60; GFR NON-AFRICAN AMERICAN > 60
--- NOTE | 2018-02-25 17:07 | CARD ---
APPROVED REPORT EKG Measurement Heart [id number] <Conclusion> Sinus bradycardia with one premature ventricular complex Otherwise normal ECG
[2018-02-25] MEDS ORDERED: Patient's Own Med (Simvastatin [Zocor] 20 MG) PO SCH (22:00)
[2018-02-26 08:35] VITALS: O2SAT 99
--- NOTE | 2018-02-26 08:36 | CP.PCM.HP ---
History of Present Illness - History of Present Illness History of Present Illness: 68 yo ,f, PMhx/o HTN, CAD s/p coronary stent x 4 in 2013, HLD presents c/o dizziness started yesterday morning while patient walking to the store with sensation like to pass out. Patient reports had to stop in the store and have a sit. Reports the episode lasted about 15-20 minutes and called ambulance to come to the hospital. She denies syncope, weakness, numbness, palpitation, chest pain, SOB, n,v,seizure activity, confusion. PMD: Ramone Kern Present on Admission - Present on Admission Any Indicators Present on Admission: No History of DVT/PE: No History of Uncontrolled Diabetes: No Urinary Catheter: No Decubitus Ulcer Present: No Review of Systems - Review of Systems All systems: reviewed and no additional remarkable complaints except - Neurological Neurological: Dizziness Past Patient History - Infectious Disease Hx of Infectious Diseases: None - Past Medical History & Family History Past Medical History?: Yes - Past Social History Smoking Status: Never Smoked - CARDIAC Hx Cardiac Disorders: Yes - PULMONARY Hx Asthma: No Hx Bronchitis: No Hx Chronic Obstructive Pulmonary Disease (COPD): No Hx Emphysema: No Hx Pneumonia: No Hx Sleep Apnea: No - NEUROLOGICAL Hx Alzheimer's Disease: No Hx Dementia: No Hx Migraine: No Hx Parkinson's Disease: No Hx Seizures: No Hx Transient Ischemic Attacks (TIA): No - HEENT Hx HEENT Problems: Yes (wears glasses) - RENAL Hx Chronic Kidney Disease: No Hx Kidney Stones: No - ENDOCRINE/METABOLIC Hx Endocrine Disorders: Yes - HEMATOLOGICAL/ONCOLOGICAL Hx AIDS: No Hx Anemia: No Hx Human Immunodeficiency Virus (HIV): No Hx Sickle Cell Disease: No - INTEGUMENTARY Hx Dermatological Problems: No Hx Basil Cell: No Hx Eczema: No Hx Melanoma: No Hx Psoriasis: No Hx Squamous Cell: No - MUSCULOSKELETAL/RHEUMATOLOGICAL Hx Falls: No - GASTROINTESTINAL Hx Crohn's Disease: No Hx Diverticulitis: No Hx Gall Bladder Disease: No Hx Pancreatitis: No - GENITOURINARY/GYNECOLOGICAL Hx Sexually Transmitted Disorders: No - PSYCHIATRIC Hx Substance Use: No - SURGICAL HISTORY Hx Appendectomy: No Hx Cholecystectomy: No Hx Coronary Stent: Yes (4 stents 2012) - ANESTHESIA Hx Anesthesia: Yes Hx Anesthesia Reactions: No Hx Malignant Hyperthermia: No Has any member of the family had a problem w/ anesthesia?: No Meds Home Medications: Home Medication List Medication Instructions Recorded Confirmed Type Aspirin [Ecotrin] 81 mg PO DAILY tabec 02/26/18 Rx Atorvastatin [Lipitor] 10 mg PO HS tab 02/26/18 Rx Losartan Potassium [Cozaar] 100 mg PO DAILY 30 Days #30 tablet 02/26/18 Rx Meclizine [Antivert] 12.5 mg PO TID PRN 30 Days #90 tab 02/26/18 Rx Allergies/Adverse Reactions: Allergies Allergy/AdvReac Type Severity Reaction Status Date / Time Penicillins Allergy SHORTNESS Verified 01/27/18 11:01 OF BREATH Physical Exam - Constitutional Appears: Non-toxic, No Acute Distress - Head Exam Head Exam: ATRAUMATIC, NORMOCEPHALIC - Eye Exam Eye Exam: Normal appearance - ENT Exam ENT Exam: Mucous Membranes Moist - Respiratory Exam Respiratory Exam: Clear to Auscultation Bilateral. absent: Rhonchi, Wheezes - Cardiovascular Exam Cardiovascular Exam: REGULAR RHYTHM, +S1, +S2 - GI/Abdominal Exam GI & Abdominal Exam: Normal Bowel Sounds, Soft. absent: Tenderness - Extremities Exam Extremities exam: Positive for: normal inspection. Negative for: pedal edema - Neurological Exam Neurological exam: Alert, Normal Gait, Oriented x3 - Psychiatric Exam Psychiatric exam: Normal Affect, Normal Mood - Skin Skin Exam: Intact Results - Vital Signs Recent Vital Signs: Last Vital Signs Temp 98 F 02/26/18 04:26 Pulse 56 L 02/26/18 08:28 Resp 16 02/26/18 08:28 BP 155/72 H 02/26/18 08:28 Pulse Ox 99 02/26/18 08:28 - Labs Result Diagrams: 02/25/18 11:44 02/25/18 11:44 Labs: Laboratory Results - last 24 hr 02/25/18 02/25/18 11:44 11:44 WBC 5.6 RBC 5.17 Hgb 11.9 L Hct 37.3 MCV 72.2 L MCH 23.0 L MCHC 31.8 L RDW 17.3 H Plt Count 208 MPV 8.3 Neut % (Auto) 57.0 Lymph % (Auto) 22.1 [place] % (Auto) 9.2 Eos % (Auto) 10.4 H Baso % (Auto) 1.3 Neut # (Auto) 3.2 Lymph # (Auto) 1.2 [place] # (Auto) 0.5 Eos # (Auto) 0.6 Baso # (Auto) 0.1 Sodium 141 Potassium 4.7 Chloride 106 Carbon Dioxide 23 Anion Gap 17 BUN 18 H Creatinine 0.9 Est GFR ( Amer) > 60 Est GFR (Non-Af Amer) > 60 Random Glucose 113 H Calcium 9.6 Total Bilirubin 0.7 AST 33 ALT 30 Alkaline Phosphatase 60 Total Protein 7.4 Albumin 3.9 Globulin 3.5 Albumin/Globulin Ratio 1.1 Assessment & Plan - Assessment and Plan (Free Text) Plan: Assessment/Plan 1) Near syncope -may be 2/2 uncontrolled BP -orthostatic vs normal -resolved -ct head 01/28 normal -carotid us 01/2018 no significant stenosis -meclizine 12.5 TID PRN
[2018-02-26 12:36] VITALS: TEMP 98.5
[2018-02-26 13:06] VITALS: BP 141/63; PULSE 70; RESP 22
== END 2018-02-26 17:20 | disposition home or self-care (01) ==
LOC: H.ER 11:07 → H.ERHOLD 12:40 → H.ICU/CCU 17:12
PROVIDERS: ADMIT Family Medicine; ATTEND Family Medicine
DX: I10 Essential (primary) hypertension (principal); R55 Syncope and collapse; I25.10 Atherosclerotic heart disease of native coronary artery without angina pectoris; E03.9 Hypothyroidism, unspecified; E78.00 Pure hypercholesterolemia, unspecified; M81.0 Age-related osteoporosis without current pathological fracture; I34.1 Nonrheumatic mitral (valve) prolapse; Z95.5 Presence of coronary angioplasty implant and graft; R00.1 Bradycardia, unspecified
CPT/HCPCS: 80053; 85025; 87081; 93005; 99285; G0378